=== PATIENT | female | born 1975 | race Caucasian/White ===

== ENCOUNTER → 2017-07-02 | Outpatient (CLI) | payer OTHER | LOC: BMCIMAGING 12:23 | PROVIDERS: ATTEND Internal Medicine | DX: Z12.31 Encounter for screening mammogram for malignant neoplasm of breast (principal) | CPT/HCPCS: G0202 ==

== ENCOUNTER 2017-09-19 06:58 | Emergency (ER) | payer OTHER ==
[2017-09-19 07:05] VITALS: BP 148/89; PULSE 83; RESP 17; TEMP 98.2; O2SAT 99
--- NOTE | 2017-09-19 07:06 | EDPHY ---
H & P Stated Complaint: rash/facial swelling at end of amoxicillin course/rx benadryl Time Seen by Provider: 09/19/17 07:05 HPI/ROS: CHIEF COMPLAINT: Rash HISTORY OF PRESENT ILLNESS: The patient presents to the ED for evaluation of a rash she has developed on her torso over the past day. The patient recently was on amoxicillin for bullous myringitis. She has approximately 3 days of the medication left. The patient did have a prior drug rash when taking penicillin. She believes that she had taken amoxicillin in the past without a reaction. She was on a short course of steroids this week as well. The patient denies any intraoral involvement. The patient denies any complaints of fever, cough, congestion or abdominal pain. REVIEW OF SYSTEMS: A comprehensive 10 point review of systems is otherwise negative aside from elements mentioned in the history of present illness. Source: Patient - Personal History LMP (Females 10-55): IUD In Place Current Tetanus/Diphtheria Vaccine: Yes - Medical/Surgical History Hx Asthma: No Hx Chronic Respiratory Disease: No Hx Diabetes: No Hx Cardiac Disease: No Hx Renal Disease: No Hx Cirrhosis: No Hx Alcoholism: No Hx HIV/AIDS: No Hx Splenectomy or Spleen Trauma: No Other PMH: DENIES - Social History Smoking Status: Never smoked - Physical Exam Exam: General Appearance: Alert, no distress Eyes: Pupils equal and round no pallor or injection ENT, Mouth: Mucous membranes moist, injection and blistering lesions noted to the right tympanic membrane consistent with her bolus myringitis Respiratory: There are no retractions, lungs are clear to auscultation Cardiovascular: Regular rate and rhythm Gastrointestinal: Abdomen is soft and nontender, no masses, bowel sounds normal Neurological: Grossly intact Skin: Papular erythematous rash noted primarily to back and trunk consistent with drug reaction Musculoskeletal: Neck is supple nontender Extremities: symmetrical, full range of motion Constitutional: Initial Vital Signs Temperature (C) 36.8 C 09/19/17 07:03 Heart Rate 83 09/19/17 07:03 Respiratory Rate 17 09/19/17 07:03 Blood Pressure 148/89 H 09/19/17 07:03 O2 Sat (%) 99 09/19/17 07:03 O2 Delivery Mode Room Air Allergies/Adverse Reactions: Penicillins Allergy (Verified 09/19/17 07:02) Home Medications: Medication Instructions Recorded Multi-Vitamin Daily 09/14/15 AMOXICILLIN 09/19/17 Medical Decision Making ED Course/Re-evaluation: The patient presents to the ED after she has developed a drug reaction. There is no evidence of Castano-Philip syndrome. The patient will be started on azithromycin and advised to stop taking her amoxicillin. She should follow up with ENT as scheduled. She has been advised to return to the ED for markedly worsening symptoms or other concerns. Departure - Departure Disposition: Home, Routine, Self-Care Clinical Impression: Drug reaction, Bullous myringitis, right ear Condition: Good Instructions: Acute Rash (ED) Additional Instructions: 1. Stop amoxicillin begin azithromycin as prescribed. 2. Return to the ED for markedly worsening rash, rash noted in your genital area or mouth, markedly worsening symptoms or other concerns. 3. Please follow up with your primary care provider and Ear Nose Throat as needed. Referrals: Moraima Atkins MD [Primary Care Provider] - As per Instructions
== END 2017-09-19 07:35 | disposition home or self-care (01) ==
DX: H73.011 Bullous myringitis, right ear (principal); T36.0X5A Adverse effect of penicillins, initial encounter

== ENCOUNTER → 2018-07-04 | Outpatient (CLI) | payer OTHER | LOC: BMCIMAGING 08:02 | PROVIDERS: ATTEND Radiology Diagnostic Radiology | DX: Z12.31 Encounter for screening mammogram for malignant neoplasm of breast (principal) ==